=== PATIENT | female | born 1970 | race Caucasian/White ===

== ENCOUNTER 2021-02-19 23:30 | Emergency (ER) | payer OTHER, SELFPAY ==
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
--- NOTE | 2021-02-19 23:37 | DI.CT.S_ITS ---
PROCEDURE: CT CERVICAL SPINE WO CON INDICATIONS: fall with head injury TECHNIQUE: Noncontrast 3 mm thick sections acquired from the skull base to the T4 level. Sagittal and coronal reformats were then constructed. For radiation dose reduction, the following was used: automated exposure control, adjustment of mA and/or kV according to patient size. COMPARISON: None. FINDINGS: Image quality: Excellent. Bones: No fractures or dislocations. Visualized superior ribs are intact. There is mild reversal of the normal cervical lordosis, possibly representing patient positioning or muscle spasm. There is mild cervical spondylosis centered at C4-C5 and C5-C6. There are uncovertebral joint osteophytes at these locations. There is ossification of the posterior longitudinal ligament extending from the bottom of C3 through C7-T1. This contributes to canal stenosis, at C4-C5 and C5-C6. Soft tissues: Prevertebral soft tissues are normal in thickness. No paravertebral hematomas. No apical pneumothoraces. Right thyroid region clips. IMPRESSION: 1. No evidence of acute cervical fracture or dislocation. 2. There is ossification of the posterior longitudinal ligament, which contributes to canal stenosis at C4-C5 and C5-C6. Comment: Final report is concordant with preliminary interpretation provided by [facility]. Dictated by: Chidi Aguilar M.D. on 02/20/2021 at 6:15 Approved by: Chidi Aguilar M.D. on 02/20/2021 at 6:21
[2021-02-19 23:42] VITALS: BP 137/86; PULSE 70; RESP 16; O2SAT 98; BMI 28.1
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
[2021-02-20 01:35] VITALS: BP 134/72; PULSE 71; RESP 14; O2SAT 98
== END 2021-02-20 01:35 | disposition home or self-care (01) ==
PROVIDERS: Emergency Provider Emergency Medicine
DX: S01.81XA Laceration without foreign body of other part of head, initial encounter (principal); W19.XXXA Unspecified fall, initial encounter
CPT/HCPCS: 12013; 70450; 72125; 99281; 99284

== ENCOUNTER 2021-02-20 12:25 | Emergency (ER) | payer OTHER, SELFPAY ==
[2021-02-20 12:52] VITALS: BP 140/87; PULSE 68; RESP 14; TEMP 36.2; O2SAT 99
--- NOTE | 2021-02-20 12:54 | DI.CT.S_ITS ---
PROCEDURE: CT HEAD/BRAIN WO CON INDICATIONS: repeat head CT, called back for abnormal results sp trauma TECHNIQUE: Noncontrast 4.5 mm thick angled axial sections acquired from the foramen magnum to the vertex, with coronal and sagittal reformats. For radiation dose reduction, the following was used: automated exposure control, adjustment of mA and/or kV according to patient size. COMPARISON: [facility], CT, CT HEAD/BRAIN WO CON, 02/19/2021, 23:51. FINDINGS: Image quality: Excellent. CSF spaces: Basal cisterns are patent. No extra-axial fluid collections. Ventricles are normal in size and shape. Brain: On the prior examination, there was a small amount subarachnoid hemorrhage involving the right frontal lobe. The small amount of subarachnoid hemorrhage has largely resolved on the current study, with a minimal amount remaining. No midline shift. No intracranial masses. Becker-white matter interface is normal. Skull and face: There is again seen a forehead laceration with soft tissue gas and hematoma, centered just to the left of the midline. Calvarium and visualized facial bones are intact, without suspicious lesions. Sinuses: Visualized sinuses and mastoids are clear. IMPRESSION: Interval partial resolution of the subarachnoid hemorrhage. Forehead laceration and hematoma. Dictated by: Bobby Wallace M.D. on 02/20/2021 at 12:14 Approved by: Bobby Wallace M.D. on 02/20/2021 at 12:16
--- NOTE | 2021-02-20 13:35 | ED_ITS ---
HPI - Head Injury General Chief complaint: Head Injury Stated complaint: Head injury post fall/Was here earlier Time Seen by Provider: 02/20/21 13:05 Source: patient Mode of arrival: Ambulatory Limitations: no limitations History of Present Illness HPI Narrative: Patient is a 51-year-old female who was asked return to the emergency department after a subarachnoid hemorrhage was found as an over read on Radiology. Patient suffered a traumatic fall last evening and has obvious facial contusion. His initial radiology read was negative however ovary did show a very small subarachnoid hemorrhage. I called and spoke to patient this morning states that she was overall feeling significantly better. She had a low-grade headache no nausea vomiting any numbness tingling or weakness. She is not on any anti-platelet or anticoagulation medication. This continues to be true in the emergency department. Related Data Previous Rx's Medication Instructions Recorded cephalexin 500 mg capsule 500 mg PO Q6H 7 Days #28 cap 02/20/21 Allergies Allergy/AdvReac Type Severity Reaction Status Date / Time No Known Drug Allergies Allergy Verified 02/20/21 12:53 Review of Systems Review of Systems Narrative: GENERAL: Denies chills, fatigue, malaise, fever, sweats, travel HEENT: Denies sinus pain, ear pain, sore throat, difficulty swallowing, neck pain RESPIRATORY: Denies dyspnea, cough, wheezing, hemoptysis, sputum. CARDIOVASCULAR: Denies chest pain, palpitations, orthopnea, edema GASTROINTESTINAL: Denies nausea, vomiting, abdominal pain, diarrhea, constipation, melena. : Denies dysuria, frequency, incontinence, hematuria, urinary retention, flank pain. MUSCULOSKELETAL: Denies weakness, joint pain, or bony pain SKIN: Facial abrasions and sutures noted on forehead NEUROLOGIC: Denies weakness, dizziness, headache, numbness, change in speech, confusion PSYCHIATRIC: No concerning psychosocial issues. 12 point review of systems is negative except for those stated above and HPI Patient History Social History Smoking Status: Never smoker Smoking Status: Never smoker alcohol intake frequency: holidays/special occasions only Substance Use Type: does not use Exam Initial Vital Signs Initial Vital Signs: Vital Signs Temperature 97.1 F L 02/20/21 12:52 Pulse Rate 68 02/20/21 12:52 Respiratory Rate 14 02/20/21 12:52 Blood Pressure 140/87 02/20/21 12:52 Pulse Oximetry 99 02/20/21 12:52 GENERAL: Well-appearing, well-nourished and in no acute distress. HEENT: Head forehead contusion swelling, EOMI CARDIOVASCULAR: Regular rate and rhythm without murmurs, rubs or gallops. RESPIRATORY: Breath sounds equal bilaterally, no wheezes rales or rhonchi. ABDOMEN: Soft, nontender. Normoactive bowel sounds all 4 quadrants. No guarding or rebound. EXTREMITIES: Normal range of motion, no clubbing or edema. Neurovascularly intact NEUROLOGICAL: Alert and oriented x4.Normal gait and speech. Cranial nerves II through XII grossly intact. Good [id number], good [id number], strength equal bilaterally, no dysarthria or aphasia, sensation in tact to soft touch bilaterally, no visual changes, no facial droop SKIN: Warm, dry, no laceration, no petechiae, no rashes or lesions. Course Orders Ordered: ED Orders 02/20/21 12:54 CT head/brain wo con Stat Discontinued Medications Bacitracin (Bacitracin Oint 0.9 Gm Pckt) 2 applic TOP NOW ONE Stop: 02/20/21 12:55 Last Admin: 02/20/21 13:39 Dose: 2 applic Documented by: JONNY Vital Signs Vital signs: Vital Signs - 8 hr 02/20/21 12:52 Temperature 97.1 F L Pulse Rate 68 Respiratory Rate 14 Blood Pressure 140/87 Pulse Oximetry 99 MDM - Head Injury Imaging Data CT scan - head: Radiologist's Impression: PROCEDURE: CT HEAD/BRAIN WO CON INDICATIONS: repeat head CT, called back for abnormal results sp trauma TECHNIQUE: Noncontrast 4.5 mm thick angled axial sections acquired from the foramen magnum to the vertex, with coronal and sagittal reformats. For radiation dose reduction, the following was used: automated exposure control, adjustment of mA and/or kV according to patient size. COMPARISON: [facility], CT, CT HEAD/BRAIN WO CON, 02/19/2021, 23:51. FINDINGS: Image quality: Excellent. CSF spaces: Basal cisterns are patent. No extra-axial fluid collections. Ventricles are normal in size and shape. Brain: On the prior examination, there was a small amount subarachnoid hemorrhage involving the right frontal lobe. The small amount of subarachnoid hemorrhage has largely resolved on the current study, with a minimal amount remaining. No midline shift. No intracranial masses. Becker-white matter interface is normal. Skull and face: There is again seen a forehead laceration with soft tissue gas and hematoma, centered just to the left of the midline. Calvarium and visualized facial bones are intact, without suspicious lesions. Sinuses: Visualized sinuses and mastoids are clear. IMPRESSION: Interval partial resolution of the subarachnoid hemorrhage. Forehead laceration and hematoma. Dictated by: Bobby Wallace M.D. on 02/20/2021 at 12:14 MDM Narrative Medical decision making narrative: CT shows resolution of subarachnoid hemorrhage. She does not have any new focal deficits overall appears well despite worsening contusion on her face. I have discussed with her warning signs of worsening all closed head injury with both she and her . She understands and agrees to return to the emergency department if any new symptoms arise. Discharge Plan Departure Patient Disposition: Home Clinical Impression: Closed head injury Instructions: DI for Closed Head Injury Activity Restrictions/Additional Instructions: *You have been diagnosed with closed head injury *What to do: Repeat head CT does not show the blood in the brain as was shown earlier. Please monitor closely for worsening symptoms such as seizures, persistent vomiting, confusion, difficulty walking, worsening headache *Continue to take medications as directed Tylenol 1000 mg and 6 hours if needed for [id number] pain *Follow up with your primary care provider in 2-3 days *Return to ER if you should have worsening headache, confusion, seizures, persistent vomiting, weakness numbness or tingling or any new, worsening or concerning symptoms Prescriptions: No Action cephalexin 500 mg capsule 500 mg PO Q6H 7 Days Qty: 28 RF: 0
[2021-02-20] MEDS: BACITRACIN OINT 0.9 GM PCKT 2 APPLIC TOP (13:39)
== END 2021-02-20 13:41 | disposition home or self-care (01) ==
PROVIDERS: Emergency Provider Emergency Medicine
DX: S06.6X9A Traumatic subarachnoid hemorrhage with loss of consciousness of unspecified duration, initial encounter (principal); W19.XXXA Unspecified fall, initial encounter
CPT/HCPCS: 70450; 99283; 99284